=== PATIENT | female | born 1955 | race Caucasian/White ===

== ENCOUNTER 2017-05-02 13:37 | Inpatient (IN) | payer OTHER ==
[~2017-05-02] VITALS: Ht 152.4 cm; Wt 65.3 kg
[2017-05-02 13:38] VITALS: BP_SYST 190
[2017-05-02 14:13] LABS: HEMATOCRIT 40.4 % (36-48); HEMOGLOBIN 12.9 g/dL (12.0-16.0); MEAN CORPUSCULAR HEMOGLOBIN 25 pg (27-31); MEAN CORPUSCULAR HGB CONC 32 % (32-36); MEAN CORPUSCULAR VOLUME 79 fL (79.0-98.0); PLATELET COUNT (AUTO) 346 K/uL (130-430); RED CELL DISTRIBUTION WIDTH 12.5 % (9.0-15.0); WHITE BLOOD COUNT (AUTO) 5.2 K/uL (4.8-10.8)
[2017-05-02 14:32] LABS: INR 0.9 (0.8-1.2); PROTHROMBIN TIME 10.2 SECS (9.5-12.5)
[2017-05-02 14:34] LABS: CREATININE 1.22 mg/dL (0.55-1.30); POTASSIUM 4.9 mmol/L (3.5-5.1)
[2017-05-02 14:38] LABS: ALBUMIN 3.4 g/dL (3.4-4.8); TOTAL BILIRUBIN 0.3 mg/dL (0.0-1.0); TOTAL PROTEIN, SERUM 8.1 g/dL (6.4-8.3)
[2017-05-02] MEDS ORDERED: ASPIRIN 81 MG TAB.CHEW PO ONE (15:00)
[2017-05-02] MEDS ORDERED: ASPIRIN 81 MG TAB.CHEW ONE (15:05)
[2017-05-02 15:17] LABS: ATYPICAL LYMPHOCYTES % 0 % (0-0); BAND % (MANUAL) 1 % (0-6); BASOPHILS % (MANUAL) 0 % (0-2); EOSINOPHILS % (MANUAL) 1 % (0-7); LYMPHOCYTES % (MANUAL) 39 % (20-46); MONOCYTES % (MANUAL) 5 % (0-11)
[2017-05-02] MEDS ORDERED: DAPA1TAB3 PO (15:38)
[2017-05-02] MEDS ORDERED: BACL10TA PO (15:38)
[2017-05-02] MEDS ORDERED: CHOL500052 PO (15:38)
[2017-05-02] MEDS ORDERED: LISI40TA4 PO (15:38)
[2017-05-02] MEDS ORDERED: OMEP20CA10 PO (15:38)
[2017-05-02] MEDS ORDERED: TRIA50CA PO (15:38)
[2017-05-02] MEDS ORDERED: LOP600 PO (15:38)
[2017-05-02] MEDS ORDERED: PARO-41 PO (15:38)
[2017-05-02 16:07] LABS: BILIRUBIN,URINE NEGATIVE (NEGATIVE); BLOOD, URINE 1+ (NEGATIVE); CLARITY/URINE CLEAR (CLEAR); COLOR,URINE YELLOW (YELLOW); GLUCOSE,URINE 3+ (NEGATIVE); KETONES,URINE NEGATIVE (NEGATIVE); LEUKOCYTE ESTERASE ,URINE NEGATIVE (NEGATIVE); NITRITE, URINE NEGATIVE (NEGATIVE); PH,URINE 5.5 (5.0-8.0); PROTEIN URINE 3+ (NEGATIVE); UROBILINOGEN,URINE 0.2 (0.2-1.0)
[2017-05-02 16:36] LABS: BACTERIA,URINE FEW /HPF (None Seen); RBC,URINE 0-3 /HPF (0-3); WBC,URINE 0-3 /HPF (0-3)
[2017-05-02 16:37] LABS: COARSE GRANULAR CASTS,URINE 0-10 /LPF (None Seen); MUCUS,URINE 1+ /LPF (None Seen); YEAST,URINE Few /HPF (None Seen)
[2017-05-02] MEDS: D5LR 1,000 ML IV SCH (17:01)
[2017-05-02 20:00] VITALS: BP_SYST 173
[2017-05-02] MEDS: hydrALAZINE HCL 20 MG/ML VIAL IVP PRN (22:11)
[2017-05-02] MEDS ORDERED: DEXTROSE 50% JECT 50 ML DISP.SYRIN IVP PRN (23:00)
[2017-05-02] MEDS ORDERED: ENOXAPARIN SODIUM 40 MG/0.4 ML SYRINGE SUBCUT SCH (23:00)
[2017-05-02] MEDS: KETOROLAC TROMETHAMINE 15 MG VIAL IVP PRN (23:49)
[2017-05-03] MEDS: D5LR 1,000 ML IV SCH (02:48)
[2017-05-03 05:19] VITALS: BP_SYST 151
[2017-05-03] MEDS: INSULIN REGULAR, HUMAN 100 UNITS/ML, 10 ML VIAL (novoLIN R) SUBCUT PRN ×4 (06:06→20:28)
[2017-05-03] MEDS: KETOROLAC TROMETHAMINE 15 MG VIAL IVP PRN ×2 (06:09→11:40)
[2017-05-03 06:59] LABS: MEAN CORPUSCULAR HEMOGLOBIN 25 pg (27-31); MEAN CORPUSCULAR HGB CONC 32 % (32-36); WHITE BLOOD COUNT (AUTO) 4.4 K/uL (4.8-10.8)
[2017-05-03 07:11] LABS: ALBUMIN 3.1 g/dL (3.4-4.8); CALCIUM 8.7 mg/dL (8.4-11.0); CREATININE 0.92 mg/dL (0.55-1.30); THYROID STIMULATING HORMONE 1.32 uIu/mL (0.34-4.82); TOTAL BILIRUBIN 0.2 mg/dL (0.0-1.0); TOTAL PROTEIN, SERUM 7.4 g/dL (6.4-8.3)
[2017-05-03 07:29] LABS: LYMPHOCYTES % (AUTO) 46.9 % (20.5-51.5); NEUTROPHILS % (AUTO) 42.2 % (40.0-70.0)
[2017-05-03 07:30] LABS: BASOPHILS % (AUTO) 0.4 % (0.0-2.0); EOSINOPHILS # (AUTO) 0.1 K/uL (0.0-0.4); LYMPHOCYTES # (AUTO) 2.1 K/uL (1.0-5.5); MONOCYTES # (AUTO) 0.4 K/uL (0.0-1.0); MONOCYTES % (AUTO) 8.5 % (1.7-9.3); NEUTROPHILS # (AUTO) 1.8 K/uL (1.8-7.7)
[2017-05-03 07:31] LABS: HEMATOCRIT 40.8 % (36-48); HEMOGLOBIN 13.1 g/dL (12.0-16.0); MEAN CORPUSCULAR VOLUME 79 fL (79.0-98.0); PLATELET COUNT (AUTO) 340 K/uL (130-430); RED BLOOD CELL COUNT(AUTO) 5.15 MIL/uL (4.2-6.2); RED CELL DISTRIBUTION WIDTH 12.7 % (9.0-15.0)
[2017-05-03] MEDS ORDERED: ASPIRIN 81 MG TAB.CHEW PO ONE (07:45)
[2017-05-03 08:00] VITALS: BP_SYST 165
[2017-05-03] MEDS: hydrALAZINE HCL 20 MG/ML VIAL IVP PRN ×2 (08:30→15:52)
[2017-05-03] MEDS ORDERED: [UNRECOGNIZED DRUG - OTHER] PO SCH (09:00)
[2017-05-03] MEDS ORDERED: PANTOPRAZOLE SODIUM 40 MG/VIAL (PROTONIX) IVP SCH (09:00)
[2017-05-03] MEDS ORDERED: METFORMIN HCL PO SCH (09:00)
[2017-05-03] MEDS ORDERED: PARoxetine HCL 20 MG TABLET PO SCH (09:00)
[2017-05-03] MEDS ORDERED: LISINOPRIL 20 MG TABLET PO SCH (09:00)
[2017-05-03] MEDS ORDERED: CHOLECALCIFEROL (VITAMIN D3) 2,000 UNIT TABLET PO SCH (09:00)
[2017-05-03] MEDS ORDERED: XIGDUO PO SCH (09:00)
[2017-05-03] MEDS ORDERED: GEMFIBROZIL 600 MG TABLET (LOPID) PO SCH (09:00)
[2017-05-03] MEDS ORDERED: OMEPRAZOLE 20 MG CAPSULE.DR (PriLOSEC) PO SCH (09:00)
[2017-05-03] MEDS ORDERED: DAPAGLIFLOZIN PO SCH (09:00)
[2017-05-03 15:35] VITALS: BP_SYST 185
[2017-05-03] MEDS ORDERED: CARVEDILOL 25 MG TABLET (COREG) PO ONE (15:45)
[2017-05-03] MEDS ORDERED: CLOPIDOGREL BISULFATE 75 MG TABLET PO ONE (15:45)
[2017-05-03] MEDS ORDERED: CLOPIDOGREL BISULFATE 75 MG TABLET ONE (15:56)
[2017-05-03] MEDS ORDERED: [UNRECOGNIZED DRUG - CODE] IN (16:31)
[2017-05-03] MEDS ORDERED: TORI15 IJ (16:38)
[2017-05-03] MEDS ORDERED: PROI40 IV (16:39)
[2017-05-03] MEDS ORDERED: LOVI40 SQ (16:41)
[2017-05-03] MEDS ORDERED: CLOP75TA2 PO (16:41)
[2017-05-03 17:06] VITALS: BP_SYST 147
[2017-05-03] MEDS ORDERED: BACLOFEN 10 MG TABLET PO SCH (21:00)
[2017-05-03] MEDS ORDERED: CARVEDILOL 25 MG TABLET (COREG) PO SCH (21:00)
[2017-05-04] MEDS ORDERED: CLOPIDOGREL BISULFATE 75 MG TABLET PO SCH (09:00)
[2017-05-04 13:04] LABS: HEMOGLOBIN A1C 13.9 % (4.8-5.6)
[2017-05-04 13:25] LABS: FOLATE (FOLIC ACID) >20.0 ng/mL (>3.0)
== END 2017-05-03 21:25 | disposition short-term general hospital (02) | DRG 66 ==
LOC: SED 13:37 → STU 15:48
PROVIDERS: ADMIT Internal Medicine; ATTEND Internal Medicine
DX: I63.8 Other cerebral infarction (principal); I10 Essential (primary) hypertension; E78.5 Hyperlipidemia, unspecified; E11.9 Type 2 diabetes mellitus without complications; R47.02 Dysphasia; F32.9 Major depressive disorder, single episode, unspecified; Z79.899 Other long term (current) drug therapy
CPT/HCPCS: 36415; 70450-TC; 70551; 71010; 80053; 80061; 81000-TC; 82607; 82746; 82962; 83036; 83880; 84443-TC; 84484; 85007; 85025; 85027; 85610-TC; 85730-TC; 92610-GN; 93005; 93306; 93880; 97116-GP; 99285; C9113; J0360; J1650; J1815; J1885; J7120

== ENCOUNTER 2019-05-13 23:58 | Emergency (ER) | payer MEDICAID, OTHER ==
[~2019-05-13] VITALS: Ht 167.6 cm; Wt 74.4 kg
[~2019-05-13 23:58] MED LIST: BACL10TA PO; CHOL500052 PO; CLOP75TA2 PO; DAPA1TAB3 PO; LISI40TA4 PO; LOP600 PO; LOVI40 SQ; OMEP20CA10 PO; PARO-41 PO; PROI40 IV; TORI15 IJ; [UNRECOGNIZED DRUG - CODE] IN
[2019-05-14] VITALS: BP_SYST 139
[2019-05-14] MEDS ORDERED: DILTIAZEM HCL 125 MG in D5W 100 ML IV ONE (00:15)
[2019-05-14] MEDS ORDERED: niCARdipine 25 MG in D5W 240 ML IV PRN (00:15)
[2019-05-14] MEDS ORDERED: LORazepam 2 MG/ML VIAL IM ONE (00:15)
[2019-05-14] MEDS ORDERED: LORazepam 2 MG/ML VIAL (FOR ER USE) ONE (00:28)
[2019-05-14] MEDS ORDERED: niCARdipine 2.5 MG/ML, 10 ML VIAL (CARDENE) IV ONE (00:32)
[2019-05-14] MEDS ORDERED: levETIRAcetam 1,000 MG in NS 100 ML IV ONE (01:15)
[2019-05-14] MEDS ORDERED: VANCOMYCIN HCL 1,000 MG in NS 250 ML IV ONE (01:15)
[2019-05-14] MEDS ORDERED: LORazepam 2 MG/ML VIAL (FOR ER USE) IVP ONE (01:30)
[2019-05-14 01:38] LABS: BASOPHILS # (AUTO) 0.1 K/uL (0.0-0.2); BASOPHILS % (AUTO) 0.8 % (0.0-2.0); EOSINOPHILS % (AUTO) 0.7 % (0.0-4.0); HEMOGLOBIN 12.4 g/dL (12.0-16.0); LYMPHOCYTES # (AUTO) 0.9 K/uL (1.0-5.5); MEAN CORPUSCULAR HEMOGLOBIN 26 pg (27-31); MEAN CORPUSCULAR HGB CONC 33 % (32-36); MEAN CORPUSCULAR VOLUME 81 fL (79.0-98.0); MONOCYTES # (AUTO) 0.5 K/uL (0.0-1.0); MONOCYTES % (AUTO) 6.7 % (1.7-9.3); NEUTROPHILS # (AUTO) 5.4 K/uL (1.8-7.7); NEUTROPHILS % (AUTO) 78.8 % (40.0-70.0); PLATELET COUNT (AUTO) 288 K/uL (130-430); RED CELL DISTRIBUTION WIDTH 16.2 % (9.0-15.0); WHITE BLOOD COUNT (AUTO) 6.9 K/uL (4.8-10.8)
[2019-05-14 01:40] LABS: ANION GAP 12 (5-15); CALCIUM 8.3 mg/dL (8.4-11.0); CHLORIDE 103 mmol/L (98-107); CREATININE 1.61 mg/dL (0.55-1.30); GLUCOSE 349 mg/dL (70-99); SODIUM SERUM 137 mmol/L (136-145); UREA NITROGEN, BLOOD 16 mg/dL (8-21)
[2019-05-14 01:45] LABS: INR 0.9 (0.8-1.2); PROTHROMBIN TIME 9.5 SECS (9.5-12.5)
[2019-05-14 01:58] LABS: ALANINE AMINOTRANSFERASE 23 U/L (12-78); ALBUMIN 2.4 g/dL (3.4-4.8); ASPARTATE AMINOTRANSFERASE 16 U/L (10-37); THYROID STIMULATING HORMONE 3.28 uIu/mL (0.36-3.74); TOTAL BILIRUBIN 0.2 mg/dL (0.0-1.0)
[2019-05-14 02:00] LABS: ACETAMINOPHEN < 1 ug/mL (1-30); ALCOHOL, BLOOD < 3 mg/dL (<10); GFR AFRICAN AMERICAN 42 mL/min (>90); POTASSIUM 2.9 mmol/L (3.5-5.1)
[2019-05-14 02:46] VITALS: BP_SYST 171
== END 2019-05-14 02:37 | disposition short-term general hospital (02) ==
LOC: SED 23:58
DX: R41.82 Altered mental status, unspecified (principal); E11.9 Type 2 diabetes mellitus without complications; I10 Essential (primary) hypertension; E78.00 Pure hypercholesterolemia, unspecified; Z79.899 Other long term (current) drug therapy
CPT/HCPCS: 36415; 70450; 71045; 80053; 82550; 84439; 84443; 84484; 85025; 85610; 85730; 87040; 93005; 96365; 96372; 96375; 99291; G0480; G0481; G0482; J2060